=== PATIENT | male | born 1955 | race Caucasian/White ===

== ENCOUNTER 2023-05-31 08:49 | Outpatient (CLI) | payer MEDICARE | END 2023-05-31 08:50 | disposition home or self-care (01) | LOC: CSHRAD 08:49 | PROVIDERS: ATTEND Internal Medicine Nephrology | DX: Z01.818 Encounter for other preprocedural examination (principal); N18.5 Chronic kidney disease, stage 5 | CPT/HCPCS: 71046 ==

== ENCOUNTER 2023-07-19 18:47 | Emergency (ER) | payer MEDICARE ==
[2023-07-19 19:34] LABS: #Basophils 0.1 10x3/uL (0.0-0.2); #Eosinphils 0.1 10x3/uL (0.0-0.5); #Monocytes 0.4 10x3/uL (0.0-1.1); #Neutrophils 3.3 10x3/uL (1.5-8.4); %Eosinophils 2.1 % (0.0-6.0); %Lymphocytes 31.4 % (18.0-47.0); %Monocytes 6.6 % (0.0-10.0); Hematocrit 39.6 % (38.8-50.0); Hemoglobin 12.5 g/dL (13.5-17.5); Mean Corpuscular HGB CONC 31.6 g/dL (32.0-36.0); Mean Corpuscular Hemoglobin 28.4 pg (27.0-33.0); Mean Platelet Volume 9.7 fl (7.4-10.4); Platelet Count 221 10x3/uL (150-450); RBC Distribution Width 14.3 % (11.5-14.5); White Blood Cell (WBC) Count 5.7 10x3/uL (3.5-10.5)
[2023-07-19 19:38] LABS: ALT (SGPT) 16 U/L (8-55); AST (SGOT) 27 U/L (5-34); Albumin 4.6 g/dL (3.4-4.8); Alkaline Phosphatase 44 U/L (40-110); Anion Gap 24 mmol/L (10-20); BUN (Urea Nitrogen) 25 mg/dL (8.4-25.7); Bilirubin, Total 0.6 mg/dL (0.2-1.2); Calc. Creatinine Clearance 0 mL/min (70-130); Calcium 9.2 mg/dL (7.8-10.44); Carbon Dioxide 22 mmol/L (23-31); Chloride 97 mmol/L (98-107); Estimated GFR 18; Globulin 2.6 g/dL (2.4-3.5); Glucose 132 mg/dL (80-115); Potassium 4.2 mmol/L (3.5-5.1); Protein, Total 7.2 g/dL (5.8-8.1); Sodium 139 mmol/L (136-145)
[2023-07-19] MEDS ORDERED: levETIRAcetam 500 MG/5 ML VIAL ONE (19:54)
== END 2023-07-20 01:09 | disposition home or self-care (01) ==
LOC: CSHERS 18:47
DX: R56.9 Unspecified convulsions (principal); E11.319 Type 2 diabetes mellitus with unspecified diabetic retinopathy without macular edema; N18.4 Chronic kidney disease, stage 4 (severe); Z86.73 Personal history of transient ischemic attack (TIA), and cerebral infarction without residual deficits; Z79.899 Other long term (current) drug therapy
CPT/HCPCS: 70450; 71045; 80053; 85025; 93005; 94760; 96365; 99285; J1953; 90935; G0257

== ENCOUNTER 2025-05-10 11:19 | Emergency (ER) | payer MEDICARE ==
[2025-05-10] MEDS ORDERED: Boostrix 0.5 ML (Tdap) VIAL (>/=7 yrs of age) ONE (12:26)
[2025-05-10 13:15] LABS: #Basophils 0.05 10x3/uL (0.0-0.2); #Eosinophils 0.08 10x3/uL (0.0-0.5); #Monocytes 0.65 10x3/uL (0.0-1.1); #Neutrophils 7.13 10x3/uL (1.5-8.4); %Basophils 0.5 % (0.0-2.0); %Eosinophils 0.9 % (0.0-6.0); %Lymphocytes 14.8 % (18.0-47.0); %Neutrophils 76.3 % (40.0-75.0); Hematocrit 39.1 % (38.8-50.0); Hemoglobin 12.2 g/dL (13.5-17.5); Mean Corpuscular HGB CONC 31.2 g/dL (32.0-36.0); Mean Corpuscular Volume 99.5 fL (81.2-95.1); Mean Platelet Volume 9.3 fL (7.4-10.4); Platelet Count 186 10x3/uL (150-450); RBC Distribution Width 15.2 % (11.5-14.5); Red Blood Cell (RBC) Count 3.93 10x6/uL (4.32-5.72); White Blood Cell (WBC) Count 9.34 10x3/uL (3.5-10.5)
[2025-05-10 13:52] LABS: ALT (SGPT) 17 U/L (Less than 45); AST (SGOT) 16 U/L (11-34); Albumin 3.7 g/dL (3.1-4.5); Alkaline Phosphatase 34 U/L (40-110); Anion Gap 20 mmol/L (10-20); BUN (Urea Nitrogen) 33 mg/dL (8.4-25.7); Bilirubin, Total 0.8 mg/dL (0.3-1.2); CK (CPK) 61 U/L (30-200); Calc. Creatinine Clearance 0 mL/min (70-130); Calcium 8.7 mg/dL (7.8-10.44); Carbon Dioxide 21 mmol/L (23-31); Chloride 107 mmol/L (98-107); Estimated GFR 8; Globulin 2.3 g/dL (2.4-3.5); Glucose 135 mg/dL (83-110); Potassium 4.9 mmol/L (3.5-5.1); Sodium 143 mmol/L (136-145)
[2025-05-10 13:58] LABS: Troponin I Less than 0.010 ng/mL (< 0.028)
[2025-05-10] MEDS ORDERED: Cefepime 2 GM VIAL ONE (14:19)
[2025-05-10] MEDS ORDERED: Lidocaine 2% 6 ML (Jelly) SYR ONE ×2 (16:08→16:10)
[2025-05-10 16:47] LABS: Bilirubin Neg (Negative); Blood, Urine 50 (Negative); Clarity Clear (Clear); Glucose, Urine (Dipstick) 100 mg/dL (Negative); Ketone, Urine Negative (Negative); Leukocyte Negative (Negative); Nitrite Negative (Negative); Protein, Urine (Dipstick) 30 mg/dl (Neg-Trace); Urobilinogen Normal mg/dL (Less than 2)
[2025-05-10 17:13] LABS: CAUTI Indications for Culture Alt mental st,lethar; RBC/HPF 0-3 HPF (0-3); Squamous Epithelial None Seen HPF (0-3); WBC/HPF 0-3 HPF (0-3)
[2025-05-10 17:14] LABS: Bacteria/HPF 2+ HPF (None Seen)
[2025-05-10 17:15] LABS: Urine Culture Reflex No No
== END 2025-05-10 17:08 | disposition home or self-care (01) ==
LOC: CSHERS 11:19
DX: R55 Syncope and collapse (principal); S80.01XA Contusion of right knee, initial encounter; T67.5XXA Heat exhaustion, unspecified, initial encounter; E86.0 Dehydration; R33.9 Retention of urine, unspecified; E11.22 Type 2 diabetes mellitus with diabetic chronic kidney disease; N18.4 Chronic kidney disease, stage 4 (severe); E11.319 Type 2 diabetes mellitus with unspecified diabetic retinopathy without macular edema; Z23 Encounter for immunization; X58.XXXA Exposure to other specified factors, initial encounter; Y93.01 Activity, walking, marching and hiking
CPT/HCPCS: 51702; 51798; 70450; 71250; 72125; 73562; 74177; 80053; 81001; 82550; 83605; 83880; 84484; 85025; 87040; 90471; 90715; 93005; 96361; 96374; 99285; J0692; 36415